=== PATIENT | female | born 1975 | race Caucasian/White ===

== ENCOUNTER → 2018-10-27 | Outpatient (CLI) | payer BC ==
--- NOTE | 2018-10-27 09:06 | RAD ---
Right neck ultrasound, 10/27/2018: HISTORY: Discomfort The area of clinical concern along the right side of the neck was carefully scanned. Several small smooth lymph nodes are identified. The largest of these measures 8 x 9 x 4 mm and is not considered to be pathologically enlarged. No mass or unusual fluid collection is seen. If clinical concern persists, CT scanning is suggested for further evaluation. Electronically signed by: Vidal Rodriguez MD (10/27/2018 9:03 AM) [facility]
== END | disposition home or self-care (01) ==
LOC: US 08:04
PROVIDERS: ATTEND Registered Nurse
DX: R22.1 Localized swelling, mass and lump, neck (principal)
CPT/HCPCS: 76536

== ENCOUNTER → 2021-05-06 | Outpatient (CLI) | payer BC ==
--- NOTE | 2021-05-06 16:55 | RAD ---
MG BILAT SCREEN+JOLLY 05/06/2021 8:20 AM INDICATION: Asymptomatic screening mammogram. COMPARISON: Baseline examination TECHNIQUE: 3D tomosynthesis was performed in CC and MLO projections. 2D views were obtained from the 3D data. CAD was utilized as needed. FINDINGS: Breast density: Category C: The breats are heterogeneously dense, which may obscure small masses. Right breast: There are no suspicious microcalcifications, masses or areas of architectural distortio n. Left breast: There are no suspicious microcalcifications, masses or areas of architectural distortion . Bilateral mammogram is compared to prior examinations appears unchanged. IMPRESSION: Negative bilateral mammogram. BI-RADS category: 1; Negative Recommendations: Recommend annual screening mammography in one year. Electronically signed by: Rosario Tellez MD (05/06/2021 4:53 PM) [id number]
== END ==
LOC: MAMMO 08:16
PROVIDERS: ATTEND Physician Assistant
DX: Z12.31 Encounter for screening mammogram for malignant neoplasm of breast (principal)
CPT/HCPCS: 77063; 77067